=== PATIENT | female | born 1940 | race Caucasian/White ===

== ENCOUNTER 2017-04-24 09:58 | Day surgery (SDC) | payer MEDICARE ==
[~2017-04-24 09:58] MED LIST: Acetaminophen TAB* 325 MG PO PRN; Buffered Lidocaine 0.9% SYRIN* 5 ML/SYR SYRINGE INTRADERM ONE
[2017-04-24] MEDS ORDERED: Midazolam* 1 MG/ML 5 ML VIAL (5 MG) ONE (12:34)
[2017-04-24 13:29] VITALS: BP 112/61
[2017-04-24] MEDS ORDERED: Ketorolac 0.5% OPHTH (NF) 0.5 % 5 ML BTL ONE (14:17)
[2017-04-24] MEDS ORDERED: Cyclopentolate 1% OPTH.SOL* 2 ML BTL ONE (14:17)
[2017-04-24] MEDS ORDERED: Neomycin/Polymy/Dex OPTH.SUSP* MAXITROL 0.1% 5 ML ONE (14:17)
[2017-04-24] MEDS ORDERED: Phenylephrine 2.5% OPTH.SOL* 2 ML BTL ONE (14:17)
[2017-04-24] MEDS ORDERED: Lidocaine 1% MPF* 2 ML VIAL ONE (14:17)
[2017-04-24] MEDS ORDERED: acetaZOLAMIDE TAB* 250 MG ONE (14:17)
[2017-04-24] MEDS ORDERED: Lidocaine 2% EPI 1:200000 MPF* 20 ML VIAL ONE (14:17)
[2017-04-24] MEDS ORDERED: Povidone Iodine 5% OPTH* 30 ML BTL ONE (14:17)
[2017-04-24] MEDS ORDERED: Proparacaine 0.5% OPHTH.SOL* 15 ML BTL ONE (14:18)
[2017-04-24] MEDS ORDERED: Buffered Lidocaine 0.9% SYRIN* 5 ML/SYR SYRINGE ONE (14:18)
--- NOTE | 2017-04-24 16:50 | OP ---
DATE OF OPERATION: 04/24/2017 - [facility] DATE OF : 1940. SURGEON: Sirnath Guillory M.D. PREOPERATIVE DIAGNOSIS: Cataract left eye. POSTOPERATIVE DIAGNOSIS: Cataract left eye. OPERATIVE PROCEDURE: Phacoemulsification left eye with IOL. DESCRIPTION OF PROCEDURE: The patient was brought to the operating room after being given 1/2% Alcaine with epinephrine drops in the preoperative area. The eye was prepped and draped in the usual sterile fashion. Sterile drape and eyelid speculum were placed. Again, topical 1/2% Alcaine with epinephrine was given. A paracentesis incision was made at the 3 o'clock position with the No.75 blade. Clear cornea incision 2.2 x 2.2-mm was created at the 6 o'clock position starting at the anterior limbus using the 2.2-mm keratome. The anterior chamber was irrigated with 0.4 mL of 1% non-preservative intracameral lidocaine and filled with DisCoVisc. A capsulorrhexis was completed using the cystotome and the Utrata forceps. Hydrodissection was performed with balanced salt solution. The lens nucleus was removed with the Phacoemulsification handpiece without incident. Cortex was removed with the irrigation-aspiration handpiece. The capsular bag was re-inflated using DisCoVisc and an [id number] 14.5 implant was inserted with the shooter, oriented to the 84 degree meridian. Horizontal reference tariq made with the patient in the seated position in the preoperative area. The irrigation-aspiration handpiece was used to remove all residual DisCoVisc. The eye was refilled with balanced salt solution and the wound checked and found to be watertight. Topical Maxitrol drops were given. [id number]/[facility] #: [id number] [facility] CENTERElsa
== END 2017-04-24 13:46 | disposition home or self-care (01) ==
LOC: OREAST 09:58
PROVIDERS: ATTEND Specialist
DX: H25.812 Combined forms of age-related cataract, left eye (principal); H43.813 Vitreous degeneration, bilateral; Z87.891 Personal history of nicotine dependence
CPT/HCPCS: A9270-GY; J2250; V2787

== ENCOUNTER 2023-12-04 14:10 | Inpatient (IN) ==
[2023-12-04] MEDS: NS 0.9% 1000 ml BAG 1,000 ML IV ONE (15:55)
[2023-12-04 16:33] LABS: INR 1.7 (0.83-1.13)
[2023-12-04 17:09] LABS: ABS Lymphocytes 0.6 10^3/uL (1.0-4.8); ABS Monocytes 0.7 10^3/uL (0.0-0.9); ABS Neutrophils 7.6 10^3/uL (1.5-7.6); Eosinophil % 0.1 %; Hematocrit 42.9 % (35-45); Hemoglobin 14.4 g/dL (11.5-14.3); Lymphocyte % 6.8 %; Mean Corpuscular Hemoglobin 30.6 pg (27-33); Mean Corpuscular Hgb Conc 33.6 g/dL (31-36); Mean Corpuscular Volume 91.3 fL (80-97); Mean Platelet Volume 8.1 fL (7.5-11.2); Platelet Count 306 10^3/uL (150-450); Red Cell Distribution Width 13.2 % (12-17)
[2023-12-04 18:26] LABS: Albumin 4.3 g/dL (3.2-5.2); Albumin/Globulin Ratio 1.5 (1-3); C Reactive Protein 13.49 mg/L (<8.01); Calcium 9.3 mg/dL (8.6-10.3); Creatinine, Serum 0.78 mg/dL (0.51-0.95); Globulin 2.9 g/dL (2-4); Potassium 3.2 mmol/L (3.5-5.0); Total Bilirubin 0.7 mg/dL (0.2-1.0); Total Protein 7.2 g/dL (6.4-8.9); eGFR CKD-EPI 75.8 (>60)
[2023-12-04] MEDS: Iohexol 350 (CONTRAST) 500 ML MDV IV ONE (18:57)
[2023-12-04] MEDS: KCL 10 MEQ/50 ML IVPREMIX 10 MEQ/50 ML BAG IV SCH (20:21)
[2023-12-04 23:01] LABS: INR 0.96 (0.83-1.13)
[2023-12-04 23:29] LABS: Urine Appearance Clear; Urine Bilirubin Negative (Negative); Urine Blood Negative (Negative); Urine Color Light-Yellow; Urine Glucose Negative (Negative); Urine Ketones 2+ (Negative); Urine Nitrite Negative (Negative); Urine Protein Trace (Negative); Urine Specific Gravity >1.050 (1.002-1.030); Urine Urobilinogen Negative (Negative)
[2023-12-05] MEDS ORDERED: Acetaminophen IV 1 GM/100ML 1,000 MG/100 ML BAG IV PRN (00:05)
[2023-12-05] MEDS ORDERED: Ondansetron 4 mg VIAL 2 MG/ML 2 ml VIAL IV PRN ×2 (00:05→16:01)
[2023-12-05] MEDS ORDERED: Morphine 2 MG/ML SYRINGE IV PRN ×2 (00:06→18:57)
[2023-12-05] MEDS: Heparin 5000 UNITS/ML 1 mL VIAL SUBCUT SCH (01:02)
[2023-12-05] MEDS: Lactated Ringers 1000 ml BAG 1,000 ML IV SCH ×2 (01:09→11:03)
[2023-12-05] MEDS: KCL 20 MEQ/100 ML IVPREMIX 20 MEQ/100 ML BAG IV SCH (01:26)
[2023-12-05 05:57] LABS: ABS Lymphocytes 0.8 10^3/uL (1.0-4.8); ABS Monocytes 0.6 10^3/uL (0.0-0.9); ABS Neutrophils 5.5 10^3/uL (1.5-7.6); Eosinophil % 0.4 %; Hematocrit 40.8 % (35-45); Hemoglobin 13.9 g/dL (11.5-14.3); Lymphocyte % 11.8 %; Mean Corpuscular Hemoglobin 30.9 pg (27-33); Mean Corpuscular Hgb Conc 34.1 g/dL (31-36); Mean Corpuscular Volume 90.5 fL (80-97); Mean Platelet Volume 8.6 fL (7.5-11.2); Nucleated Red Blood Cells % 0.1 %/100WBC (0.0-0.8); Platelet Count 263 10^3/uL (150-450); Red Cell Distribution Width 13.4 % (12-17); White Blood Count 7.1 10^3/uL (3.8-11.8)
[2023-12-05 06:45] LABS: Calcium 8.6 mg/dL (8.6-10.3); Creatinine, Serum 0.46 mg/dL (0.51-0.95); Potassium 3.9 mmol/L (3.5-5.0); eGFR CKD-EPI 95.5 (>60)
[2023-12-05] MEDS ORDERED: Sulfur Hexaflouride MICROSPHR 25 MG VIAL ONE (07:28)
[2023-12-05] MEDS: Sulfur Hexaflouride MICROSPHR 25 MG VIAL IV ONE (08:01)
[2023-12-05] MEDS: Buffered Lidocaine 1% SYRIN 1 ml INTRADERM ONE (12:17)
[2023-12-05] MEDS ORDERED: Buffered Lidocaine 1% SYRIN 1 ml ONE (14:40)
[2023-12-05] MEDS ORDERED: Propofol 10 MG/ML 20 ML BTL ONE (15:29)
[2023-12-05] MEDS ORDERED: fentaNYL 250 mcg/5 ml 50 MCG/ML 5 ml VIAL (250 MCG) ONE (15:30)
[2023-12-05] MEDS ORDERED: Rocuronium 50 mg VIAL 10 mg/ml 5 ml VIAL (50 mg) ONE (15:30)
[2023-12-05] MEDS ORDERED: Lidocaine 2% PF 5 ML VIAL ONE (15:32)
[2023-12-05] MEDS ORDERED: fentaNYL 100 mcg/2 ml 50 MCG/ML VIAL IV PRN (16:01)
[2023-12-05] MEDS ORDERED: Scopolamine 1 mg/72hr PATCH ONE (16:14)
[2023-12-05] MEDS: Scopolamine 1 mg/72hr PATCH TRANSDERM SCH (16:29)
[2023-12-05] MEDS ORDERED: Ondansetron 4 mg VIAL 2 MG/ML 2 ml VIAL ONE (17:56)
[2023-12-05] MEDS ORDERED: Dexamethasone IV 4 MG/ML VIAL 1 ml VIAL ONE (17:56)
[2023-12-05] MEDS ORDERED: Acetaminophen IV 1 GM/100ML 1,000 MG/100 ML BAG IV ONE (18:01)
[2023-12-05] MEDS: Ertapenem 1 GM in NS 0.9% 50 ML IVPB ONE (23:42)
[2023-12-06 05:39] LABS: ABS Lymphocytes 0.7 10^3/uL (1.0-4.8); ABS Monocytes 0.5 10^3/uL (0.0-0.9); ABS Neutrophils 5.2 10^3/uL (1.5-7.6); Hematocrit 38.7 % (35-45); Hemoglobin 13.3 g/dL (11.5-14.3); Lymphocyte % 11.4 %; Mean Corpuscular Hemoglobin 30.9 pg (27-33); Mean Corpuscular Hgb Conc 34.2 g/dL (31-36); Mean Corpuscular Volume 90.3 fL (80-97); Mean Platelet Volume 8.2 fL (7.5-11.2); Platelet Count 242 10^3/uL (150-450); Red Blood Count 4.29 10^6/uL (3.63-4.92); Red Cell Distribution Width 13.1 % (12-17); White Blood Count 6.5 10^3/uL (3.8-11.8)
[2023-12-06 06:18] LABS: Calcium 8.3 mg/dL (8.6-10.3); Creatinine, Serum 0.48 mg/dL (0.51-0.95); Magnesium 1.9 mg/dL (1.9-2.7); eGFR CKD-EPI 94.5 (>60)
[2023-12-06] MEDS: Enoxaparin 40 MG/0.4 ML SYR SUBCUT SCH (13:46)
[2023-12-06 18:08] LABS: Carcinoembryonic Antigen 1.2 ng/mL (0.1-5.0)
[2023-12-07 06:46] LABS: ABS Lymphocytes 1.2 10^3/uL (1.0-4.8); ABS Monocytes 0.5 10^3/uL (0.0-0.9); ABS Neutrophils 4.3 10^3/uL (1.5-7.6); ABS Nucleated RBC 0.01 10^3/ul; Eosinophil % 0.7 %; Hematocrit 38.9 % (35-45); Hemoglobin 13.2 g/dL (11.5-14.3); Lymphocyte % 19.9 %; Mean Corpuscular Hemoglobin 30.7 pg (27-33); Mean Corpuscular Hgb Conc 33.9 g/dL (31-36); Mean Corpuscular Volume 90.7 fL (80-97); Mean Platelet Volume 9.4 fL (7.5-11.2); Nucleated Red Blood Cells % 0.1 %/100WBC (0.0-0.8); Platelet Count 261 10^3/uL (150-450); Red Blood Count 4.29 10^6/uL (3.63-4.92); Red Cell Distribution Width 13.2 % (12-17)
[2023-12-07 07:27] LABS: Anion Gap 10 mmol/L (2-16); Blood Urea Nitrogen 18 mg/dL (6-24); CO2 Carbon Dioxide 28 mmol/L (22-32); Calcium 8.2 mg/dL (8.6-10.3); Chloride 100 mmol/L (101-111); Creatinine, Serum 0.48 mg/dL (0.51-0.95); Glucose 83 mg/dL (70-100); Sodium 138 mmol/L (135-145); eGFR CKD-EPI 94.5 (>60)
[2023-12-07 14:31] VITALS: BP 119/71
== END 2023-12-07 15:30 | disposition home or self-care (01) | DRG 331 ==
LOC: ED 14:10 → SUATTDRO 22:28 → EDHOLD 22:28 → SSU 23:56
PROVIDERS: ADMIT Hospitalist; ATTEND Student in an Organized Health Care Education/Training Program

== ENCOUNTER 2024-02-11 11:03 | Inpatient (IN) ==
[~2024-02-11 11:03] MED LIST changes: -Acetaminophen TAB* 325 MG PO PRN; -Buffered Lidocaine 0.9% SYRIN* 5 ML/SYR SYRINGE INTRADERM ONE; +Ertapenem 1 GM in NS 0.9% 50 ML BAG IVPB SCH; +Naloxone 0.4 mg VIAL 0.4 mg/ml 1 ml VIAL IV PRN; +Ondansetron 4 mg VIAL 2 MG/ML 2 ml VIAL IV PRN
[2024-02-11] MEDS: Buffered Lidocaine 1% SYRIN 1 ml INTRADERM ONE (12:07)
[2024-02-11 12:18] LABS: Rapid COVID-19 Molecular Undetected (Undetected)
[2024-02-11] MEDS ORDERED: Propofol 10 MG/ML 20 ML BTL ONE ×3 (12:29→15:49)
[2024-02-11] MEDS ORDERED: Lidocaine 2% PF 5 ML VIAL ONE (12:29)
[2024-02-11] MEDS ORDERED: Midazolam 2 mg/2 ml VIAL 1 mg/ml 2 ml VIAL (2 mg) ONE (12:29)
[2024-02-11] MEDS ORDERED: fentaNYL 100 mcg/2 ml 50 MCG/ML VIAL ONE ×4 (12:29→18:08)
[2024-02-11] MEDS ORDERED: Rocuronium 50 mg VIAL 10 mg/ml 5 ml VIAL (50 mg) ONE ×2 (12:30→14:12)
[2024-02-11] MEDS ORDERED: Famotidine IV 10 MG/ML 2 ml VIAL (20 mg) ONE (12:34)
[2024-02-11] MEDS ORDERED: Heparin 5000 UNITS/ML 1 mL VIAL ONE (12:34)
[2024-02-11] MEDS ORDERED: Bupivacaine 0.25% EPI 200,000 30 ML SDV ONE (12:35)
[2024-02-11 12:41] LABS: ABS Basophils 0.1 10^3/uL (0.0-0.1); ABS Lymphocytes 0.7 10^3/uL (1.0-4.8); ABS Monocytes 0.4 10^3/uL (0.0-0.9); ABS Neutrophils 7.8 10^3/uL (1.5-7.6); ABS Nucleated RBC 0.01 10^3/ul; Eosinophil % 0.1 %; Hematocrit 40.1 % (35-45); Hemoglobin 12.8 g/dL (11.5-14.3); Lymphocyte % 7.6 %; Mean Corpuscular Hemoglobin 29.1 pg (27-33); Mean Corpuscular Hgb Conc 31.9 g/dL (31-36); Mean Corpuscular Volume 91.1 fL (80-97); Mean Platelet Volume 8.8 fL (7.5-11.2); Nucleated Red Blood Cells % 0.1 %/100WBC (0.0-0.8); Platelet Count 283 10^3/uL (150-450); Red Cell Distribution Width 13.7 % (12-17)
[2024-02-11] MEDS: Famotidine IV 10 MG/ML 2 ml VIAL (20 mg) IV ONE (12:43)
[2024-02-11] MEDS: Lactated Ringers 1000 ml BAG 1,000 ML IV SCH ×2 (12:43→21:50)
[2024-02-11] MEDS ORDERED: Acetaminophen IV 1 GM/100ML 1,000 MG/100 ML BAG IV ONE (14:12)
[2024-02-11] MEDS ORDERED: HYDROmorphone 0.5 MG/0.5 ML SYRINGE IV SLOW PU PRN (16:58)
[2024-02-11] MEDS: fentaNYL 100 mcg/2 ml 50 MCG/ML VIAL IV PRN (18:09)
[2024-02-12 08:10] LABS: Albumin/Globulin Ratio 1.3 (1-3); Calcium 8.9 mg/dL (8.6-10.3); Creatinine, Serum 0.54 mg/dL (0.51-0.95); Globulin 3.1 g/dL (2-4); Total Bilirubin 0.7 mg/dL (0.2-1.0); Total Protein 7.1 g/dL (6.4-8.9); eGFR CKD-EPI 91.9 (>60)
[2024-02-12 08:13] LABS: Hematocrit 39.4 % (35-45); Hemoglobin 12.8 g/dL (11.5-14.3); Mean Corpuscular Hemoglobin 30.1 pg (27-33); Mean Corpuscular Hgb Conc 32.6 g/dL (31-36); Mean Corpuscular Volume 92.4 fL (80-97); Mean Platelet Volume 9.5 fL (7.5-11.2); Platelet Count 219 10^3/uL (150-450); Red Blood Count 4.26 10^6/uL (3.63-4.92); Red Cell Distribution Width 13.6 % (12-17); White Blood Count 11.3 10^3/uL (3.8-11.8)
[2024-02-12] MEDS ORDERED: HYDROmorphone 0.5 MG/0.5 ML SYRINGE IV SLOW PU PRN (08:24)
[2024-02-12 08:51] LABS: ABS Lymphocytes 0.5 10^3/uL (1.0-4.8); ABS Monocytes 0.4 10^3/uL (0.0-0.9); ABS Neutrophils 10.4 10^3/uL (1.5-7.6); ABS Nucleated RBC 0.01 10^3/ul; Lymphocyte % 4.4 %; Nucleated Red Blood Cells % 0.1 %/100WBC (0.0-0.8)
[2024-02-12] MEDS: Enoxaparin 40 MG/0.4 ML SYR SUBCUT SCH (09:55)
[2024-02-13] MEDS: D5W 1/2 NS KCl 20 meq 1000 ml 1,000 ML IV SCH (10:12)
[2024-02-13] MEDS: hydrALAZINE 20 mg/ml 1 ML Vial IV IV SLOW PU PRN (11:24)
[2024-02-13] MEDS: Ondansetron 4 mg VIAL 2 MG/ML 2 ml VIAL IV PRN (11:25)
[2024-02-13] MEDS: Acetaminophen IV 1 GM/100ML 650 MG/65 ML BAG IV SCH (17:41)
[2024-02-14 06:20] LABS: ABS Basophils 0.1 10^3/uL (0.0-0.1); ABS Lymphocytes 0.6 10^3/uL (1.0-4.8); ABS Monocytes 0.7 10^3/uL (0.0-0.9); ABS Neutrophils 15.7 10^3/uL (1.5-7.6); ABS Nucleated RBC 0.01 10^3/ul; Hematocrit 42.5 % (35-45); Hemoglobin 13.9 g/dL (11.5-14.3); Lymphocyte % 3.7 %; Mean Corpuscular Hemoglobin 28.9 pg (27-33); Mean Corpuscular Hgb Conc 32.6 g/dL (31-36); Mean Corpuscular Volume 88.6 fL (80-97); Mean Platelet Volume 8.8 fL (7.5-11.2); Platelet Count 249 10^3/uL (150-450); Red Blood Count 4.79 10^6/uL (3.63-4.92); Red Cell Distribution Width 13.7 % (12-17); White Blood Count 17.1 10^3/uL (3.8-11.8)
[2024-02-14 06:33] LABS: Calcium 8.5 mg/dL (8.6-10.3); Creatinine, Serum 0.46 mg/dL (0.51-0.95); Potassium 3.8 mmol/L (3.5-5.0); eGFR CKD-EPI 95.5 (>60)
[2024-02-14] MEDS: NS 0.9% 500 ml BAG 500 ML IV ONE (08:44)
[2024-02-14 14:17] LABS: Urine Appearance Clear; Urine Bilirubin Negative (Negative); Urine Blood Negative (Negative); Urine Color Yellow; Urine Glucose Trace (Negative); Urine Ketones Negative (Negative); Urine Nitrite Negative (Negative); Urine Protein 1+ (>=30 mg/dL) (Negative); Urine Specific Gravity 1.039 (1.002-1.030); Urine Urobilinogen Negative (Negative); Urine pH 6.5 (5.0-8.0)
[2024-02-14 14:24] LABS: Urine Bacteria Absent /HPF (Absent); Urine Red Blood Cell 2+(6-10/hpf) /HPF (0-Trace); Urine Squamous Epithelial Cell Present /HPF (Absent); Urine White Blood Cell Trace(0-5/hpf) /HPF (0-Trace)
[2024-02-14] MEDS: Lactated Ringers 1000 ml BAG 500 ML IV ONE (16:31)
[2024-02-14] MEDS: Phenol 1.4% Throat Spray BTL MT PRN (16:48)
[2024-02-14] MEDS: D5W 1/2 NS KCl 20 meq 1000 ml 1,000 ML IV SCH (16:51)
[2024-02-15] MEDS: Pantoprazole VIAL 40 MG VIAL IV SCH (10:10)
[2024-02-15 11:14] LABS: ABS Lymphocytes 0.8 10^3/uL (1.0-4.8); ABS Monocytes 0.7 10^3/uL (0.0-0.9); ABS Neutrophils 8.9 10^3/uL (1.5-7.6); Eosinophil % 0.2 %; Hematocrit 39.5 % (35-45); Hemoglobin 13.2 g/dL (11.5-14.3); Lymphocyte % 7.8 %; Mean Corpuscular Hemoglobin 29.7 pg (27-33); Mean Corpuscular Hgb Conc 33.3 g/dL (31-36); Mean Platelet Volume 9.1 fL (7.5-11.2); Platelet Count 255 10^3/uL (150-450); Red Blood Count 4.44 10^6/uL (3.63-4.92); Red Cell Distribution Width 13.6 % (12-17); White Blood Count 10.4 10^3/uL (3.8-11.8)
[2024-02-15 11:30] LABS: Albumin/Globulin Ratio 1.1 (1-3); Calcium 8.1 mg/dL (8.6-10.3); Creatinine, Serum 0.37 mg/dL (0.51-0.95); Globulin 2.7 g/dL (2-4); Magnesium 1.7 mg/dL (1.9-2.7); Phosphorus 2.4 mg/dL (2.5-5.0); Potassium 3.6 mmol/L (3.5-5.0); Total Bilirubin 0.6 mg/dL (0.2-1.0); Total Protein 5.7 g/dL (6.4-8.9); eGFR CKD-EPI 100.6 (>60)
[2024-02-15] MEDS: PPN (PERIPHERAL) 24 HR with D10W 1000 ml BAG 1,000 ML, Amino Acid Infusion 10% 850 ML, ... IV SCH (16:58)
[2024-02-16 06:22] LABS: ABS Eosinophils 0.1 10^3/uL (0.0-0.5); ABS Monocytes 0.7 10^3/uL (0.0-0.9); ABS Neutrophils 6.5 10^3/uL (1.5-7.6); Eosinophil % 1.1 %; Hematocrit 38.7 % (35-45); Lymphocyte % 12.2 %; Mean Corpuscular Hemoglobin 29.6 pg (27-33); Mean Corpuscular Hgb Conc 33.5 g/dL (31-36); Mean Corpuscular Volume 88.5 fL (80-97); Platelet Count 249 10^3/uL (150-450); Red Blood Count 4.38 10^6/uL (3.63-4.92); Red Cell Distribution Width 13.4 % (12-17); White Blood Count 8.3 10^3/uL (3.8-11.8)
[2024-02-16 06:37] LABS: Calcium 7.9 mg/dL (8.6-10.3); Creatinine, Serum 0.34 mg/dL (0.51-0.95); Magnesium 2.2 mg/dL (1.9-2.7); Phosphorus 3.4 mg/dL (2.5-5.0); Potassium 3.7 mmol/L (3.5-5.0); eGFR CKD-EPI 102.7 (>60)
[2024-02-16] MEDS ORDERED: KETAMINE HCL 10 MG/ML 20 ml VIAL (200 MG) ONE (09:57)
[2024-02-16] MEDS ORDERED: Midazolam 2 mg/2 ml VIAL 1 mg/ml 2 ml VIAL (2 mg) ONE (09:57)
[2024-02-16] MEDS ORDERED: Rocuronium 50 mg VIAL 10 mg/ml 5 ml VIAL (50 mg) ONE ×2 (09:57→12:03)
[2024-02-16] MEDS ORDERED: fentaNYL 100 mcg/2 ml 50 MCG/ML VIAL ONE (09:57)
[2024-02-16] MEDS ORDERED: Bupivacaine 0.25% EPI 200,000 30 ML SDV ONE (09:58)
[2024-02-16] MEDS ORDERED: HYDROmorphone 1 MG/1 ML SYRINGE IV PRN (10:15)
[2024-02-16] MEDS ORDERED: Naloxone 0.4 mg VIAL 0.4 mg/ml 1 ml VIAL IV PRN (10:15)
[2024-02-16] MEDS ORDERED: metroNIDAZOLE IV 500 MG/100ML 500 MG/100 ML BAG ONE (10:21)
[2024-02-16] MEDS ORDERED: ceFAZolin 2 GM PREMIX 2 GM/50 ML BAG ONE (10:21)
[2024-02-16] MEDS ORDERED: Ondansetron 4 mg VIAL 2 MG/ML 2 ml VIAL ONE (11:10)
[2024-02-16] MEDS ORDERED: Dexamethasone IV 4 MG/ML VIAL 1 ml VIAL ONE (11:10)
[2024-02-16] MEDS ORDERED: Succinylcholine 200 mg VIAL 20 mg/ml 10 ml VIAL (200 mg) ONE (11:43)
[2024-02-16] MEDS ORDERED: Lidocaine 2% PF 5 ML VIAL ONE (11:43)
[2024-02-16] MEDS ORDERED: Propofol 10 MG/ML 20 ML BTL ONE (11:43)
[2024-02-16] MEDS ORDERED: HYDROmorphone 0.5 MG/0.5 ML SYRINGE ONE (12:12)
[2024-02-16] MEDS: ceFAZolin 2 GM/50 ML BAG IV ONE (15:42)
[2024-02-16] MEDS: metroNIDAZOLE IV 500 MG/100ML 100 ML IVPB ONE (15:42)
[2024-02-16] MEDS: PPN (PERIPHERAL) 24 HR with D10W 1000 ml BAG 1,000 ML, Amino Acid Infusion 10% 850 ML, ... IV SCH (16:54)
[2024-02-18 11:45] VITALS: BP 144/72
== END 2024-02-18 15:14 | disposition home or self-care (01) | DRG 330 ==
LOC: AA 11:03 → SSU 16:50
PROVIDERS: ADMIT Surgery; ATTEND Surgery

== ENCOUNTER 2024-03-24 10:51 | Inpatient (IN) ==
[~2024-03-24 10:51] MED LIST changes: -Ertapenem 1 GM in NS 0.9% 50 ML BAG IVPB SCH; +Metoclopramide 5 MG/ML VIAL (10 mg) IV PRN; +NS 0.45% 1000 ml BAG 1,000 ML IV SCH; +fentaNYL 100 mcg/2 ml 50 MCG/ML VIAL IV PRN
[2024-03-24] MEDS ORDERED: fentaNYL 100 mcg/2 ml 50 MCG/ML VIAL ONE (11:09)
[2024-03-24] MEDS ORDERED: Propofol 10 MG/ML 20 ML BTL ONE (11:10)
[2024-03-24] MEDS ORDERED: Lidocaine 2% PF 5 ML VIAL ONE (11:10)
[2024-03-24 11:39] LABS: Rapid COVID-19 Molecular Undetected (Undetected)
[2024-03-24] MEDS: Acetaminophen IV 1 GM/100ML 1,000 MG/100 ML BAG IV ONE (12:12)
[2024-03-24] MEDS: Scopolamine 1 mg/72hr PATCH TRANSDERM ONE (12:12)
[2024-03-24] MEDS: Buffered Lidocaine 1% SYRIN 1 ml INTRADERM ONE (12:12)
[2024-03-24] MEDS: Lactated Ringers 1000 ml BAG 1,000 ML IV SCH (12:27)
[2024-03-24] MEDS ORDERED: Acetaminophen IV 1 GM/100ML 1,000 MG/100 ML BAG IV ONE (12:34)
[2024-03-24] MEDS ORDERED: Bupivacaine 0.25% EPI 200,000 30 ML SDV ONE (13:18)
[2024-03-24] MEDS ORDERED: HYDROmorphone 0.5 MG/0.5 ML SYRINGE ONE (15:05)
[2024-03-24] MEDS ORDERED: oxyCODONE/Acetamin 5/325 mg TAB PO PRN (15:47)
[2024-03-24] MEDS ORDERED: Ondansetron 4 mg VIAL 2 MG/ML 2 ml VIAL IV PRN (15:51)
[2024-03-24] MEDS ORDERED: Morphine 2 MG/ML SYRINGE IV PRN (15:56)
[2024-03-24] MEDS: Ertapenem 1 GM in NS 0.9% 50 ML IVPB ONE (17:30)
[2024-03-24] MEDS: NS 0.9% 1000 ml BAG 1,000 ML IV SCH (17:32)
[2024-03-24] MEDS: Heparin 5000 UNITS/ML 1 mL VIAL SUBCUT SCH (22:44)
[2024-03-25 05:44] LABS: ABS Basophils 0.1 10^3/uL (0.0-0.1); ABS Lymphocytes 1.1 10^3/uL (1.0-4.8); ABS Monocytes 0.7 10^3/uL (0.0-0.9); ABS Neutrophils 6.3 10^3/uL (1.5-7.6); Eosinophil % 0.1 %; Hematocrit 31.2 % (35-45); Hemoglobin 10.1 g/dL (11.5-14.3); Lymphocyte % 13.9 %; Mean Corpuscular Hemoglobin 27.8 pg (27-33); Mean Corpuscular Hgb Conc 32.4 g/dL (31-36); Mean Corpuscular Volume 85.8 fL (80-97); Mean Platelet Volume 7.7 fL (7.5-11.2); Platelet Count 507 10^3/uL (150-450); Red Blood Count 3.63 10^6/uL (3.63-4.92); Red Cell Distribution Width 13.9 % (12-17); White Blood Count 8.2 10^3/uL (3.8-11.8)
[2024-03-25 05:57] LABS: Calcium 8.1 mg/dL (8.6-10.3); Creatinine, Serum 0.51 mg/dL (0.51-0.95); Potassium 4.9 mmol/L (3.5-5.0); eGFR CKD-EPI 93.1 (>60)
[2024-03-27 11:10] VITALS: BP 131/75
== END 2024-03-27 12:00 | disposition home or self-care (01) | DRG 330 ==
LOC: SSU 10:51 → OR 10:51 → OBSVTOIN 15:47
PROVIDERS: ADMIT Surgery; ATTEND Surgery